=== PATIENT | male | born 1965 | race Caucasian/White ===

== ENCOUNTER 2023-02-23 10:52 | Emergency (ER) | payer OTHER, BC ==
[2023-02-23] MEDS ORDERED: HYDROmorphone 0.5 MG/0.5 ML SYRINGE IVP STA (11:34)
--- NOTE | 2023-02-23 11:51 | ED ---
General Adult HPI - General Chief complaint: Wound/Laceration Stated complaint: right pink tip cut off Time Seen by Provider: 02/23/23 11:29 Source: patient, RN notes reviewed Mode of arrival: ambulatory Limitations: no limitations - History of Present Illness Initial comments: 57-year-old male presents to the emergency department for chief complaint of right pinky injury. He states that his finger got closed in a bulldozer door when the wind blew it shut. Patient reports that the distal part of his fingertip including his fingernail was prepped off. The patient feels that the bone is still intact. He isn't sure of his last tetanus vaccination. No medication ALLERGIES. - Related Data Previous Rx's Medication Instructions Recorded Cephalexin [Keflex] 500 mg PO Q6HR #28 cap 02/23/23 HYDROcodone/APAP 5-325MG [Hearne 5] 1 each PO Q6HR PRN #12 tab 02/23/23 Allergies Allergy/AdvReac Type Severity Reaction Status Date / Time bee venom protein (honey bee) Allergy Anaphylaxis Verified 02/23/23 11:00 Review of Systems ROS Statement: Those systems with pertinent positive or pertinent negative responses have been documented in the HPI. ROS Other: All systems not noted in ROS Statement are negative. Past Medical History Additional Past Medical History / Comment(s): diverticulitis History of Any Multi-Drug Resistant Organisms: None Reported Past Surgical History: Cholecystectomy, Orthopedic Surgery Past Psychological History: No Psychological Hx Reported Smoking Status: Never smoker Past Alcohol Use History: Occasional Past Drug Use History: None Reported General Exam Limitations: no limitations General appearance: alert, in no apparent distress Course Vital Signs 02/23/23 02/23/23 02/23/23 10:55 12:28 15:03 Temperature 97.7 F 97.9 F Pulse Rate 87 86 78 Respiratory 18 18 16 Rate Blood Pressure 126/89 123/79 127/88 O2 Sat by Pulse 96 96 98 Oximetry Medical Decision Making - Medical Decision Making Was pt. sent in by a medical professional or institution (, JUSTINE, SALES AND SERVICE ASSOCIATE, urgent care, hospital, or long term...) When possible be specific @ -No Did you speak to anyone other than the patient for history (EMS, parent, family, police, friend...)? What history was obtained from this source @ -No Did you review nursing and triage notes (agree or disagree)? Why? @ -I reviewed and agree with nursing and triage notes Were old charts reviewed (outside hosp., previous admission, EMS record, old EKG, old radiological studies, urgent care reports/EKG's, long term records)? Report findings @ -No old charts were reviewed Differential Diagnosis (chest pain, altered mental status, abdominal pain women, abdominal pain men, vaginal bleeding, weakness, fever, dyspnea, syncope, headache, dizziness, GI bleed, back pain, seizure, CVA, palpatations, mental health, musculoskeletal)? @ -Differential Musculoskeletal Muscular strain, contusion, ligament sprain, fracture, arthritis, septic arthritis, bursitis, cellulitis, muscle spasm, nerve compression, DVT, arterial occlusion, herpes zoster, electrolyte abnormality, tumor.... This is not meant to be in all inclusive list EKG interpreted by me (3pts min.). @ -None X-rays interpreted by me (1pt min.). @ -XR obtained shows patient amputation of the distal soft tissue of the fifth digit, loss of the tuft CT interpreted by me (1pt min.). @ -None done U/S interpreted by me (1pt. min.). @ -None done What testing was considered but not performed or refused? (CT, X-rays, U/S, labs)? Why? @ -None What meds were considered but not given or refused? Why? @ -None Did you discuss the management of the patient with other professionals (professionals i.e. , PA, SALES AND SERVICE ASSOCIATE, lab, RT, psych nurse, outreach and education social worker, quality control director, teacher, aoc plans intelligence officer, heel caser)? Give summary @ -No Was smoking cessation discussed for >3mins.? @ -No Was critical care preformed (if so, how long)? @ -No Were there social determinants of health that impacted care today? How? (Homelessness, low income, unemployed, alcoholism, drug addiction, transportation, low edu. Level, literacy, decrease access to med. care, detention, rehab)? @ -No Was there de-escalation of care discussed even if they declined (Discuss DNR or withdrawal of care, Hospice)? DNR status @ -No What co-morbidities impacted this encounter? (DM, HTN, Smoking, COPD, CAD, Cancer, CVA, ARF, Chemo, Hep., AIDS, mental health diagnosis, sleep apnea, morbid obesity)? @ -None Was patient admitted / discharged? Hospital course, mention meds given and route, prescriptions, significant lab abnormalities, going to OR and other pertinent info. @ -discharged. Patient presented to the emergency department chief complaint of left fifth finger injury. IV started patient given 2 g Ancef and Dilaudid for pain. Wound was cleaned with sterile water. X-rays obtained shows amputation of the distal soft tissue of the fifth digit, loss of the tuft. This was a degloving type injury, the distal soft tissue just below the nail was avulsed. Wound was cleaned, dressed with Gelfoam applied with a sterile dressing over top. Patient will follow-up with orthopedics tomorrow. Prescription sent patient's pharmacy for Keflex. Patient understanding and agreeable with plan. Patient stable at time of discharge. Case discussed with Dr. Grant Undiagnosed new problem with uncertain prognosis? @ -No Drug Therapy requiring intensive monitoring for toxicity (Heparin, Nitro, Insulin, Cardizem)? @ -No Were any procedures done? @ -No Diagnosis/symptom? @ -skin avulsion, open fracture Acute, or Chronic, or Acute on Chronic? @ -acute Uncomplicated (without systemic symptoms) or Complicated (systemic symptoms)? @ -uncomplicated Side effects of treatment? @ -No Exacerbation, Progression, or Severe Exacerbation? @ -No Poses a threat to life or bodily function? How? (Chest pain, [place], [place], pneumonia, PE, COPD, DKA, ARF, appy, cholecystitis, CVA, Diverticulitis, Homicidal, Suicidal, threat to staff... and all critical care pts) @ -No Disposition Clinical Impression: Skin avulsion, Open fracture of tuft of distal phalanx of finger Disposition: HOME SELF-CARE Condition: Stable Instructions (If sedation given, give patient instructions): Hand Fracture (ED) Additional Instructions: Please follow up with orthopedic hand surgery. user support specialist antibiotics and take to completion. [facility] Dr. Jaren Peters, Dr. Lilly [address] [place] [id number] Lalo Dillon [place] [address] [place], [place] Prescriptions: Cephalexin [Keflex] 500 mg PO Q6HR #28 cap HYDROcodone/APAP 5-325MG [Hearne 5] 1 each PO Q6HR PRN #12 tab PRN Reason: Pain Is patient prescribed a controlled substance at d/c from ED?: No Referrals: None,Stated [Primary Care Provider] - 1-2 days Zayda Edwards DO [Doctor of Osteopathic Medicine] - 1-2 days
[2023-02-23] MEDS ORDERED: DIPH,PERTUS(ACELL)TETVAC-LF 0.5 ML VIAL IM ONE (13:06)
--- NOTE | 2023-02-23 13:08 | XR ---
EXAMINATION TYPE: XR finger RT DATE OF EXAM: 02/23/2023 COMPARISON: None HISTORY: Finger slammed in door TECHNIQUE: 3 view left fifth finger FINDINGS: There is amputation of the soft tissues of the distal fifth digit. There is amputation of p ortion of the tuft of the fifth digit. Additional fractures are not identified. IMPRESSION: 1. Amputation of the distal soft tissue fifth digit loss of the tuft of the digit.
[2023-02-23] MEDS ORDERED: GELATIN SPONGE,ABSORB (SMALL) 1 EACH SPONGE TOPICAL STA (13:55)
[2023-02-23 15:27] VITALS: BP 127/88; PULSE 78; RESP 16; TEMP 97.9
== END 2023-02-23 15:05 | disposition home or self-care (01) ==
LOC: EC 10:52
DX: S62.637B Displaced fracture of distal phalanx of left little finger, initial encounter for open fracture (principal); Z90.49 Acquired absence of other specified parts of digestive tract; Z91.030 Bee allergy status; Z23 Encounter for immunization; W22.09XA Striking against other stationary object, initial encounter
CPT/HCPCS: 87040; 73140; 90715; 99283; 90471; 96365; 96375; J0690; J1170